=== PATIENT | female | born 1975 | race Caucasian/White ===

== ENCOUNTER → 2016-07-28 | Outpatient (CLI) | payer OTHER, MEDICAID ==
[2016-07-28 13:56] LABS: BILIRUBIN,URINE NEGATIVE (NEGATIVE); BLOOD/HEMOGLOBIN,URINE 4+ (NEGATIVE); GLUCOSE, URINE NEGATIVE (NEGATIVE); KETONES,URINE NEGATIVE (NEGATIVE); LEUKOCYTE ESTERASE ,URINE 2+ (NEGATIVE); NITRITES,URINE NEGATIVE (NEGATIVE); PROTEIN,URINE 1+ (NEGATIVE); UROBILINOGEN,URINE 1+ (NORMAL)
[2016-07-28 14:05] LABS: BASOPHILS % (AUTO) 0.7 % (0.2-1.0); EOSINOPHILS # (AUTO) 0.1 x10^3/uL (0.0-0.2); EOSINOPHILS % (AUTO) 1.4 % (0.9-2.9); HEMATOCRIT 38.6 % (36.0-47.0); HEMOGLOBIN 13.1 g/dL (12.0-16.0); LYMPHOCYTES # (AUTO) 1.7 X10^3/uL (1.3-2.9); LYMPHOCYTES % (AUTO) 26.9 % (21.0-51.0); MEAN CORPUSCULAR HGB CONC 33.8 g/dL (33.0-35.0); MEAN CORPUSCULAR VOLUME 82.9 fL (80.0-100.0); MEAN PLATELET VOLUME 9.3 fL (7.4-11.0); MONOCYTES # (AUTO) 0.5 x10^3/uL (0.3-0.8); MONOCYTES % (AUTO) 7.2 % (0.0-13.0); NEUTROPHILS # (AUTO) 4.1 x10^3/uL (2.2-4.8); NEUTROPHILS % (AUTO) 63.8 % (42.0-75.0); PLATELET COUNT 150 X10^3/uL (150.0-450.0); RED BLOOD COUNT 4.66 X10^6/uL (3.5-5.4); RED CELL DISTRIBUTION WIDTH 14.7 % (11.6-16.5); WHITE BLOOD COUNT 6.4 X10^3/uL (3.6-10.0)
[2016-07-28 14:07] LABS: BLOOD UREA NITROGEN 11 mg/dL (7-18); CARBON DIOXIDE 34.7 mmol/L (21-32); CHLORIDE 105 mmol/L (98-107); CREATININE 0.94 mg/dL (0.55-1.02); GLUCOSE 95 mg/dL (65-99); SODIUM 144 mmol/L (136-145); eGFR BLACK RACES > 60 (>60); eGFR NON BLACK RACES > 60 (>60)
[2016-07-28 14:14] LABS: APPEARANCE,URINE SLIGHTLY HAZY (CLEAR); BACTERIA,URINE TRACE /HPF (NEGATIVE); COLOR,URINE YELLOW (YELLOW); SQUAMOUS EPITHELIAL CELL,UR FEW /HPF (NEGATIVE)
[2016-07-28 14:15] LABS: MUCUS,URINE FEW /HPF (NEGATIVE)
[2016-07-28 14:18] LABS: SERUM PREGNANCY TEST, QUAL NEGATIVE <10 mIU/mL
--- NOTE | 2016-07-28 14:18 | RAD ---
HISTORY: Preoperative evaluation for hysterectomy Study: PA and lateral chest Comparison: None Findings: The trachea is midline. The cardiac silhouette is unremarkable. The lungs are clear without focal mass or consolidation. There is no effusion or pneumothorax. The bony thorax is grossly unremarkab le. IMPRESSION: No acute cardiopulmonary disease. Reported By:
== END | disposition home or self-care (01) ==
LOC: LAB 13:19
PROVIDERS: ATTEND Specialist
DX: Z01.818 Encounter for other preprocedural examination (principal); Z01.810 Encounter for preprocedural cardiovascular examination; Z01.811 Encounter for preprocedural respiratory examination; N92.5 Other specified irregular menstruation; N94.6 Dysmenorrhea, unspecified; R10.2 Pelvic and perineal pain
CPT/HCPCS: 36415; 71020; 80048; 81001; 84703; 85025; 85610; 85730; 86850; 86900; 86901; 87086; 93005; 93010

== ENCOUNTER 2016-08-03 06:22 | Inpatient (IN) | payer OTHER, MEDICAID ==
[2016-08-03] MEDS ORDERED: ANCEF VIAL 1 GM 1 GM in NS 50 ML IV + SPIKE MINIBAG* 50 ML IV PRN (06:26)
[2016-08-03] MEDS ORDERED: D5 1/2 NS 1000 ML 1,000 ML IV SCH ×2 (06:26→10:07)
[2016-08-03] MEDS ORDERED: NS 50 ML IV + SPIKE MINIBAG* 50 ML IV ONE (06:27)
[2016-08-03] MEDS ORDERED: ANCEF VIAL 1 GM ONE (06:28)
[2016-08-03] MEDS ORDERED: D5 LR 1000 ML 1,000 ML IV ONE (06:48)
[2016-08-03 06:50] VITALS: BMI 22.3
[2016-08-03] MEDS ORDERED: DILAUDID INJ ONE ×2 (07:01→09:34)
[2016-08-03] MEDS ORDERED: FENTANYL INJ 250 mcg ONE ×2 (07:01→08:18)
[2016-08-03] MEDS ORDERED: XYLOCAINE 2% ONE (07:01)
[2016-08-03] MEDS ORDERED: ZEMURON ONE (07:08)
[2016-08-03] MEDS ORDERED: NS IRRIGATION 1000 ML 1,000 ML IR ONE ×2 (07:15→08:37)
[2016-08-03] MEDS ORDERED: LR 1000 ML IV 1,000 ML IV ONE (08:18)
[2016-08-03 08:23] LABS: BILIRUBIN,URINE NEGATIVE (NEGATIVE); BLOOD/HEMOGLOBIN,URINE 5+ (NEGATIVE); GLUCOSE, URINE 3+ (NEGATIVE); KETONES,URINE NEGATIVE (NEGATIVE); LEUKOCYTE ESTERASE ,URINE 1+ (NEGATIVE); NITRITES,URINE NEGATIVE (NEGATIVE); PROTEIN,URINE NEGATIVE (NEGATIVE); UROBILINOGEN,URINE NORMAL (NORMAL)
[2016-08-03 08:51] LABS: APPEARANCE,URINE CLEAR (CLEAR); BACTERIA,URINE NEGATIVE /HPF (NEGATIVE); COLOR,URINE YELLOW (YELLOW); RBC,URINE 30-40 /HPF (NEGATIVE); SQUAMOUS EPITHELIAL CELL,UR RARE /HPF (NEGATIVE)
[2016-08-03] MEDS ORDERED: PHENERGAN INJ 25 MG IVP PRN (09:17)
[2016-08-03] MEDS ORDERED: BENADRYL INJ 50 MG VIAL IVP PRN ×2 (09:17→10:07)
[2016-08-03] MEDS ORDERED: ZOFRAN INJ 4 MG VIAL IVP PRN ×2 (09:17→10:07)
[2016-08-03] MEDS ORDERED: DILAUDID INJ IVP PRN (09:17)
[2016-08-03] MEDS ORDERED: MORPHINE SULFATE PCA 30 MG IVP PRN (09:22)
[2016-08-03] MEDS ORDERED: NEO-SYNEPHRINE INJ ONE (09:46)
[2016-08-03] MEDS ORDERED: TORADOL 30 MG VIAL IVP PRN (10:07)
[2016-08-03] MEDS: MORPHINE SULFATE PCA 30 MG IVP PRN (10:19)
[2016-08-03] MEDS: D5 1/2 NS 1000 ML 1,000 ML IV SCH ×2 (17:37→23:55)
[2016-08-04] MEDS: MORPHINE SULFATE PCA 30 MG IVP PRN (05:46)
[2016-08-04 06:16] LABS: BLOOD UREA NITROGEN 10 mg/dL (7-18); CALCIUM 7.2 mg/dL (8.5-10.1); CARBON DIOXIDE 31.9 mmol/L (21-32); CHLORIDE 103 mmol/L (98-107); COR NA(FOR HYPERGLY) 142 mmol/L (136-145); CREATININE 1.01 mg/dL (0.55-1.02); GLUCOSE 116 mg/dL (65-99); SODIUM 142 mmol/L (136-145); eGFR BLACK RACES > 60 (>60); eGFR NON BLACK RACES > 60 (>60)
[2016-08-04 06:20] LABS: BASOPHILS % (AUTO) 0.2 % (0.2-1.0); EOSINOPHILS # (AUTO) 0.1 x10^3/uL (0.0-0.2); EOSINOPHILS % (AUTO) 0.7 % (0.9-2.9); HEMATOCRIT 31.9 % (36.0-47.0); HEMOGLOBIN 10.9 g/dL (12.0-16.0); LYMPHOCYTES # (AUTO) 1.8 X10^3/uL (1.3-2.9); LYMPHOCYTES % (AUTO) 20.1 % (21.0-51.0); MEAN CORPUSCULAR HEMOGLOBIN 28.4 pg (27.0-34.0); MEAN CORPUSCULAR HGB CONC 34.1 g/dL (33.0-35.0); MEAN CORPUSCULAR VOLUME 83.2 fL (80.0-100.0); MEAN PLATELET VOLUME 9.1 fL (7.4-11.0); MONOCYTES # (AUTO) 0.5 x10^3/uL (0.3-0.8); MONOCYTES % (AUTO) 5.2 % (0.0-13.0); NEUTROPHILS # (AUTO) 6.7 x10^3/uL (2.2-4.8); NEUTROPHILS % (AUTO) 73.8 % (42.0-75.0); PLATELET COUNT 104 X10^3/uL (150.0-450.0); RED BLOOD COUNT 3.83 X10^6/uL (3.5-5.4); RED CELL DISTRIBUTION WIDTH 14.9 % (11.6-16.5); WHITE BLOOD COUNT 9.1 X10^3/uL (3.6-10.0)
[2016-08-04] MEDS ORDERED: PERCOCET TAB 5/325 MG PO PRN ×2 (06:25→16:42)
[2016-08-04] MEDS ORDERED: MOTRIN TAB 800 MG PO PRN (06:25)
[2016-08-04] MEDS: D5 1/2 NS 1000 ML 1,000 ML IV SCH ×3 (06:41→22:02)
[2016-08-04] MEDS: ESTRACE PO SCH (08:42)
[2016-08-04] MEDS: COLACE CAP 100 MG PO SCH ×2 (08:42→21:56)
[2016-08-04] MEDS: BACTROBAN OINT TOP SCH ×2 (14:59→21:58)
[2016-08-05] MEDS: D5 1/2 NS 1000 ML 1,000 ML IV SCH (05:51)
[2016-08-05] MEDS: BACTROBAN OINT TOP SCH (05:53)
[2016-08-05] MEDS: ESTRACE PO SCH (09:18)
[2016-08-05] MEDS: COLACE CAP 100 MG PO SCH (09:18)
[2016-08-05 11:13] VITALS: BP 100/55
== END 2016-08-05 10:10 | disposition home or self-care (01) | DRG 743 ==
LOC: OBS 06:22 → MED/SURG 08-04 18:05
PROVIDERS: ADMIT Specialist; ATTEND Specialist
PROC: 0UTC0ZZ Resection of Cervix, Open Approach (ICD-10-PCS; 2016-08-03)
PROC: 0UT20ZZ Resection of Bilateral Ovaries, Open Approach (ICD-10-PCS; 2016-08-03)
PROC: 0UT70ZZ Resection of Bilateral Fallopian Tubes, Open Approach (ICD-10-PCS; 2016-08-03)
PROC: 0UT90ZZ Resection of Uterus, Open Approach (ICD-10-PCS; principal; 2016-08-03 07:30)
DX: N92.5 Other specified irregular menstruation (principal); N94.4 Primary dysmenorrhea; R10.2 Pelvic and perineal pain; Q51.3 Bicornate uterus
CPT/HCPCS: 36415; 80048; 81001; 84703; 85025; 85610; 85730; 86850; 86900; 86901; A4222; J0690; J1170; J2271; J2370; J3010; J7042; J7120

== ENCOUNTER 2016-08-15 11:01 | Emergency (ER) | payer OTHER, MEDICAID ==
[2016-08-15 11:06] VITALS: BMI 20.1
[2016-08-15] MEDS ORDERED: NS 1000 ML 1,000 ML IV ONE (11:12)
--- NOTE | 2016-08-15 11:15 | DR.GENAD ---
HPI - PCP Primary Care Physician: CINDY - HPI Comment HPI Comment: HISTORY BELOW. - Complaint/Symptoms Chief Complaint Doctors Comments: HYPOTENSION, WEAKNESS. RECENT HYSTERECTOMY, HAVE VESICO-VAGINAL FISTULAR WITH INDWELLING NICOLE CATH. SOME URINE STILL GOING THROUGH FISTULAR. NO FEVER. Chief Complaint:: PT. HAD AN ABDOMINAL HYSTERECTOMY PER DR. WHITE ON . PT. WAS BECOMING INCONTINENT AND HAD A NICOLE CATHETER PLACED ON 08/09/16. PT. WAS REFERRED TO ER PER DR. WHITE FOR POSSIBLE DEHYDRATION. PT. C/O WEAKNESS AND DECREASED ORAL INTAKE AND APPEPTITE. - Nurses notes reviewed Nurses Notes Review: Yes - Source History Provided: Patient, Parent - Mode of Arrival Mode of Arrival: Wheelchair - Timing Onset of Chief Complaint: 08/09/16 Came on: Suddenly - Duration Duration: Constant Duration: Days - Severity Severity: Moderate PMH - PMH Past Medical History: Yes Past Medical History Comment: HOLE IN BLADDER Past Surgical History: Yes Surgical History: , Hysterectomy - Family History History of Family Medical Conditions: Yes Family Medical History: Diabetes Mellitus, Cancer, [place], Hypertension - Social History Does patient currently use any type of tobacco product: No Have you used tobacco products in the last 12 months: No Type of Tobacco Use: None Does any household member use tobacco: No Alcohol Use: None Do you use any recreational Drugs:: No Lives With: Family Lives Where: Home - infectious screening In the last 2 months have you had wt loss of >10#?: NO Have you had fever, night sweats or hemotysis?: No Have you traveled outside the country in the last 6 months?: No Isolation: Standard ROS - Review of Systems Constitutional: Weakness, Fatigue, Loss of Appetite. negative: Chills, Fever Eyes: No Symptoms Reported. negative: Eye Pain, Discharge ENTM: No Symptoms Reported. negative: Ear Pain, Nose Discharge, Nose Congestion , Throat Pain Respiratoy: Short of Breath. negative: Productive Cough, Wheezing, Hemoptysis Cardiovascular: Palpitations. negative: Chest Pain, Edema, Syncope Gastrointestinal/Abdominal: Abdominal Pain (PELVIC PAIN). negative: Diarrhea, Nausea, Vomiting Genitourinary: Discharge (VESICO-VAGINAL FISTULAR/URINE DRAINIG IN VAGINAL AREA. ) Neurological: Weakness, Dizziness. negative: Headache Musculoskeletal: Muscle Pain Integumentary: Change in Color (HEALED HYSTERECTOMY SCAR.) Hematologic/Lymphatic: No Symptoms Reported Endocrine: No Symptoms Reported All Other Systems: Reviewed and Negative PE - Vital Signs Vitals: Temperature 98.4 F Pulse Rate [Left Brachial] 81 Pulse Rate 129 Respiratory Rate 18 Blood Pressure [Right Arm] 110/73 Blood Pressure [Left Arm] 113/71 Blood Pressure 98/71 O2 Sat by Pulse Oximetry 97 - General Limitations: No Limitations General Appearance: Alert - Head Head Exam: Normal Inspection - Eyes Eye exam: Normal Appearance - ENT ENT Exam: Normal External Ear Exam External Ear Exam: Normal External Inspection TM/Canal Exam: Bilateral Normal Nose Exam: Normal Nose Exam Mouth Exam: Normal Inspection Throat Exam: Normal Inspection - Neck Neck Exam: Trachea Midline - Chest Chest Inspection: Symmetric Chest Wall Rise - Respiratory Respiratory Exam: Normal Lung Sounds Bilat Respiratory Exam: Bilateral Clear to Auscultation - Cardiovascular Cardiovascular Exam: Normal Rhythm, Tachycardia, Normal Heart Sounds - Abdominal Exam Abdominal Exam: Normal Bowel Sounds, Soft, Tenderness (LOWER ABDOMEN TENDER SLIGHTLY.) - Extremities Extremities Exam: Normal Inspection - Back Back Exam: Normal Inspection - Neurologic Neurological Exam: Alert, Oriented X3 - Psychiatric Psychiatric Exam: Normal Affect, Normal Mood - Skin Skin Exam: Normal Color MDM - Additional Information Additional Information Obtained From: Family - Differential Diagnosis Differential Diagnosis: HYPOTENSION, VU FISTULAR, UTI, DEHYDRATION Course - Treatment Treatment: SEE ORDERS. - Reevaluation 1st: Improved - Consultation Consultation Comments: PATIENT DISCUSS CARMELA WHITE. D/C TO FOLLOW IN THE OFFICE AND UROLOGIST SISI. - Education/Counseling Education/Counseling: Patient, Family, Education Educated On: Treatment, Diagnosis, Needs for Follow Up ROR - Labs Reviewed Laboratory Results Reviewed?: Yes Result Diagrams: 08/15/16 11:52 08/15/16 11:55 Laboratory: WBC 11.3 X10^3/uL (3.6-10.0) H 08/15/16 11:52 RBC 4.41 X10^6/uL (3.5-5.4) 08/15/16 11:52 Hgb 12.2 g/dL (12.0-16.0) 08/15/16 11:52 Hct 36.6 % (36.0-47.0) 08/15/16 11:52 MCV 83.0 fL (80.0-100.0) 08/15/16 11:52 MCH 27.7 pg (27.0-34.0) 08/15/16 11:52 MCHC 33.3 g/dL (33.0-35.0) 08/15/16 11:52 RDW 14.4 % (11.6-16.5) 08/15/16 11:52 Plt Count 271 X10^3/uL (150.0-450.0) 08/15/16 11:52 MPV 8.1 fL (7.4-11.0) 08/15/16 11:52 Neut % 80.6 % (42.0-75.0) H 08/15/16 11:52 Lymph % 11.8 % (21.0-51.0) L 08/15/16 11:52 Citrus % 5.0 % (0.0-13.0) 08/15/16 11:52 Eos % 1.4 % (0.9-2.9) 08/15/16 11:52 Baso % 1.2 % (0.2-1.0) H 08/15/16 11:52 Neut # 9.1 x10^3/uL (2.2-4.8) H 08/15/16 11:52 Lymph # 1.3 X10^3/uL (1.3-2.9) 08/15/16 11:52 Citrus # 0.6 x10^3/uL (0.3-0.8) 08/15/16 11:52 Eos # 0.2 x10^3/uL (0.0-0.2) 08/15/16 11:52 Baso # 0.1 X10^3/uL (0.0-0.1) 08/15/16 11:52 Absolute Nucleated RBC 0.0 /100WBC 08/15/16 11:52 Sodium 139 mmol/L (136-145) 08/15/16 11:55 Corrected Sodium TNP 08/15/16 11:55 Potassium 3.4 mmol/L (3.5-5.1) L 08/15/16 11:55 Chloride 99 mmol/L (98-107) 08/15/16 11:55 Carbon Dioxide 23.4 mmol/L (21-32) 08/15/16 11:55 BUN 21 mg/dL (7-18) H 08/15/16 11:55 Creatinine 1.05 mg/dL (0.55-1.02) H 08/15/16 11:55 Est GFR (MDRD) Af Amer > 60 (>60) 08/15/16 11:55 Est GFR (MDRD) Non-Af > 60 (>60) 08/15/16 11:55 Glucose 67 mg/dL (65-99) 08/15/16 11:55 Calcium 8.0 mg/dL (8.5-10.1) L 08/15/16 11:55 Corrected Calcium 9.0 mg/dL (8.5-10.1) 08/15/16 11:55 Total Bilirubin 0.30 mg/dL (0.2-1.0) 08/15/16 11:55 AST 13 Units/L (15-37) L 08/15/16 11:55 ALT 13 Units/L (12-78) 08/15/16 11:55 Alkaline Phosphatase 74 Units/L (46-116) 08/15/16 11:55 Total Protein 7.4 g/dL (6.4-8.2) 08/15/16 11:55 Albumin 2.8 g/dL (3.4-5.0) L 08/15/16 11:55 Globulin 4.6 g/dL (2.5-4.5) H 08/15/16 11:55 Albumin/Globulin Ratio 0.6 Ratio (1.1-2.1) L 08/15/16 11:55 Specimen Type Catherized urine 08/15/16 13:14 Urine Color Yellow (YELLOW) 08/15/16 13:14 Urine Appearance Cloudy (CLEAR) 08/15/16 13:14 Urine pH 6.0 (5.0 - 8.0) 08/15/16 13:14 Ur Specific Hanna 1.020 (1.000-1.030) 08/15/16 13:14 Urine Protein 2+ (NEGATIVE) 08/15/16 13:14 Urine Glucose (UA) Negative (NEGATIVE) 08/15/16 13:14 Urine Ketones 4+ (NEGATIVE) 08/15/16 13:14 Urine Occult Blood 5+ (NEGATIVE) 08/15/16 13:14 Urine Nitrite Negative (NEGATIVE) 08/15/16 13:14 Urine Bilirubin Negative (NEGATIVE) 08/15/16 13:14 Urine Urobilinogen Normal (NORMAL) 08/15/16 13:14 Ur Leukocyte Esterase 3+ (NEGATIVE) 08/15/16 13:14 Urine RBC 10-12 /HPF (NEGATIVE) 08/15/16 13:14 Urine WBC Tntc /HPF (NEGATIVE) 08/15/16 13:14 Ur Squamous Epith Cells Rare /HPF (NEGATIVE) 08/15/16 13:14 Amorphous Sediment Trace /HPF (NEGATIVE) 08/15/16 13:14 Urine Bacteria Trace /HPF (NEGATIVE) 08/15/16 13:14 Ur Culture Indicated? Yes/culture set up 08/15/16 13:14 Urinalysis Comment QNS 08/15/16 11:51 - XRAY XRAY Interpreted by: Radiologist XRAY Findings: REPORT DISCUSS WITH PATIENT. - EKG Rhythm: NSR (EKG NOTED) - Diagnosis Discharge Problem: Dehydration Hypotension Qualifiers: Hypotension type: unspecified hypotension type Qualified Code(s): I95.9 - Hypotension, unspecified UTI (urinary tract infection) Qualifiers: Urinary tract infection type: acute cystitis Hematuria presence: without hematuria Qualified Code(s): N30.00 - Acute cystitis without hematuria - Discharge Plan Disposition: HOME, SELF-CARE Condition: Stable Prescriptions: Sulfamethoxazole/Trimethoprim [Sulfamethoxazole-Tmp Susp] 20 ml PO BID #400 ml - Follow ups/Referrals Follow ups/Referrals: SANCHO WHITE [Primary Care Provider] - 3 days - Instructions Instructions: Urinary Tract Infection, Dehydration, Adult, [id number], Hypotension, [id number] Additional Instructions: RETURN TO ED IF WORSE.
[2016-08-15] MEDS ORDERED: NS 1000 ML 1,000 ML ONE (11:24)
[2016-08-15 12:14] LABS: BILIRUBIN,URINE NEGATIVE (NEGATIVE); BLOOD/HEMOGLOBIN,URINE 5+ (NEGATIVE); GLUCOSE, URINE NEGATIVE (NEGATIVE); KETONES,URINE 4+ (NEGATIVE); LEUKOCYTE ESTERASE ,URINE 3+ (NEGATIVE); NITRITES,URINE NEGATIVE (NEGATIVE); PROTEIN,URINE 3+ (NEGATIVE); UROBILINOGEN,URINE NORMAL (NORMAL)
[2016-08-15 12:17] LABS: BASOPHILS # (AUTO) 0.1 X10^3/uL (0.0-0.1); BASOPHILS % (AUTO) 1.2 % (0.2-1.0); EOSINOPHILS # (AUTO) 0.2 x10^3/uL (0.0-0.2); EOSINOPHILS % (AUTO) 1.4 % (0.9-2.9); HEMATOCRIT 36.6 % (36.0-47.0); HEMOGLOBIN 12.2 g/dL (12.0-16.0); LYMPHOCYTES # (AUTO) 1.3 X10^3/uL (1.3-2.9); LYMPHOCYTES % (AUTO) 11.8 % (21.0-51.0); MEAN CORPUSCULAR HEMOGLOBIN 27.7 pg (27.0-34.0); MEAN CORPUSCULAR HGB CONC 33.3 g/dL (33.0-35.0); MEAN PLATELET VOLUME 8.1 fL (7.4-11.0); MONOCYTES # (AUTO) 0.6 x10^3/uL (0.3-0.8); NEUTROPHILS # (AUTO) 9.1 x10^3/uL (2.2-4.8); NEUTROPHILS % (AUTO) 80.6 % (42.0-75.0); PLATELET COUNT 271 X10^3/uL (150.0-450.0); RED BLOOD COUNT 4.41 X10^6/uL (3.5-5.4); RED CELL DISTRIBUTION WIDTH 14.4 % (11.6-16.5); WHITE BLOOD COUNT 11.3 X10^3/uL (3.6-10.0)
[2016-08-15 12:18] LABS: APPEARANCE,URINE CLOUDY (CLEAR); COLOR,URINE YELLOW (YELLOW)
[2016-08-15 12:22] VITALS: BP 110/73
[2016-08-15 12:28] LABS: ALANINE AMINOTRANSFERASE 13 Units/L (12-78); ALBUMIN 2.8 g/dL (3.4-5.0); ALKALINE PHOSPHATASE 74 Units/L (46-116); ASPARTATE AMINO TRANSFERASE 13 Units/L (15-37); BLOOD UREA NITROGEN 21 mg/dL (7-18); CARBON DIOXIDE 23.4 mmol/L (21-32); CHLORIDE 99 mmol/L (98-107); CREATININE 1.05 mg/dL (0.55-1.02); GLUCOSE 67 mg/dL (65-99); SODIUM 139 mmol/L (136-145); TOTAL PROTEIN 7.4 g/dL (6.4-8.2); eGFR BLACK RACES > 60 (>60); eGFR NON BLACK RACES > 60 (>60)
[2016-08-15 13:22] LABS: BILIRUBIN,URINE NEGATIVE (NEGATIVE); BLOOD/HEMOGLOBIN,URINE 5+ (NEGATIVE); GLUCOSE, URINE NEGATIVE (NEGATIVE); KETONES,URINE 4+ (NEGATIVE); LEUKOCYTE ESTERASE ,URINE 3+ (NEGATIVE); NITRITES,URINE NEGATIVE (NEGATIVE); PROTEIN,URINE 2+ (NEGATIVE); UROBILINOGEN,URINE NORMAL (NORMAL)
[2016-08-15 13:29] LABS: APPEARANCE,URINE CLOUDY (CLEAR); BACTERIA,URINE TRACE /HPF (NEGATIVE); COLOR,URINE YELLOW (YELLOW); SQUAMOUS EPITHELIAL CELL,UR RARE /HPF (NEGATIVE)
[2016-08-15 13:30] LABS: AMORPHOUS SEDIMENT,UR TRACE /HPF (NEGATIVE)
--- NOTE | 2016-08-15 14:34 | CT ---
CT ABDOMEN AND PELVIS WITHOUT CONTRAST CLINICAL HISTORY: 41-year-old female with pelvic pain status post hysterectomy last week with patien t report of bladder injury. COMPARISON: None. TECHNIQUE: Multiple contiguous computed tomographic axial images of the abdomen and pelvis were obta ined without the use of oral or intravenous contrast. Images were reformatted in the coronal and sag ittal planes. FINDINGS: The lung bases demonstrate no evidence of focal air-space opacification, pleural effusion, pneumotho rax, or suspicious pulmonary nodules. The imaged inferior mediastinum and heart are normal in appea damian without evidence of pericardial effusion. 2 low-attenuation cystic lesions measuring 4 mm and 9 mm in the right lobe of the liver likely repre sent cysts or hemangiomas. The spleen, pancreas and gallbladder are unremarkable for study without c ontrast. The adrenal glands and right kidney are normal. There is a large mildly complex cystic lesion arising from the superior medial aspect of the left ki dney measuring 5.1 x 4.6 cm in greatest axial dimensions. There are innumerable hyperdense cystic le sions scattered throughout the remaining left renal parenchyma measuring up to 1.5 cm. There are no nephroureteral stones or perinephric fluid collections. There is no evidence of hydroureteronephrosi s and the ureters run in an unobstructed course to the urinary bladder which contains a well placed Nolasco catheter with balloon in good position. Status post hysterectomy. Vaginal cuff and adnexa are unremarkable. Expected postsurgical change wi th mild inflammation of the pelvic mesenteric as well as the low anterior abdominal wall without foc al fluid collection to suggest phlegmon, abscess or seroma/hematoma. The appendix is normal in appearance. The bowel is without obstruction or inflammation and there is no free fluid or free air within the peritoneal cavity. There are no pathologically enlarged lymph nodes in the abdomen or pelvis. The arteriovascular structures are within normal limits for a study without contrast. Soft tissues are normal. The osseous structures are intact without fracture or malalignment. IMPRESSION: 1. Status post hysterectomy without CT evidence of intra-abdominal or intrapelvic abscess, seroma, h ematoma or phlegmon on a study without contrast. 2. No nephroureterolithiasis. 3. Multiple hyperdense cystic lesions within the left kidney, may represent hemorrhagic cysts but fu rther evaluation with MR renal protocol or renal protocol CT is recommended for complete evaluation. 4. Large mixed density exophytic left renal cysts measuring up to 5 cm. 5. Normal appendix. Reported By:
[2016-08-15] MEDS ORDERED: ROCEPHIN VIAL 1 GM 1 GM in NS 50 ML IV + SPIKE MINIBAG* 50 ML IV ONE (14:57)
[2016-08-15] MEDS ORDERED: ROCEPHIN 1 GM IV PREMIX * OUT OF STOCK 50 ML IV ONE (14:58)
== END 2016-08-15 15:49 | disposition home or self-care (01) ==
LOC: ER 11:11
DX: I95.9 Hypotension, unspecified (principal); E86.0 Dehydration; N39.0 Urinary tract infection, site not specified; Z90.710 Acquired absence of both cervix and uterus
CPT/HCPCS: 36415; 74176; 80053; 81001; 81003; 85025; 87086; 96365; 96374; 99283; A4222; J0696